=== PATIENT | male | born 1960 | race Caucasian/White ===

== ENCOUNTER 2019-11-08 14:19 | Inpatient (IN) | payer MEDICAID, OTHER ==
[~2019-11-08] VITALS: Ht 175.3 cm; Wt 132.8 kg
[2019-11-08] MEDS ORDERED: SODIUM CHLORIDE 0.9% 500 ML IV ONE (14:41)
[2019-11-08] MEDS ORDERED: MORPHINE SULFATE 4 MG/ML SYR/VIAL IV ONE (14:45)
[2019-11-08] MEDS ORDERED: ONDANSETRON HCL 4 MG/2 ML VIAL IV ONE (14:45)
[2019-11-08 15:10] LABS: Basophils # (auto) 0.1 10 ^3/uL (0-0.2); Eosinophils # (auto) 0.2 10 ^3/uL (0-0.8); Eosinophils % (auto) 3.3 % (0.0-7.0); Hematocrit 38.6 % (41.0-53.0); Hemoglobin 12.9 g/dL (13.5-17.5); Lymphocytes # (auto) 1.5 10 ^3/uL (0.4-5.4); Lymphocytes % (auto) 21.7 % (10.0-50.0); Mean Corpuscular Hemoglobin 29.9 pg (28.0-32.0); Mean Corpuscular Hgb Conc. 33.4 g/dL (32.0-36.0); Mean Corpuscular Volume 89.6 fL (80.0-100.0); Monocytes # (auto) 0.6 10 ^3/uL (0-1.3); Monocytes % (auto) 8.2 % (0.0-12.0); Neutrophils # (auto) 4.7 10 ^3/uL (1.6-8.6); Neutrophils % (auto) 65.8 % (37.0-80.0); Nucleated Red Blood Cells % 0.1 %; Platelet Count (auto) 173 10^3/uL (140-450); Red Cell Distribution Width 13.7 % (11.8-14.3); White Blood Cell 7.1 10^3/uL (4.4-10.8)
[2019-11-08 15:23] LABS: INR 1.15 (0.9-1.15); Partial Thromboplastin Time 26.7 sec (23.64-32.05)
[2019-11-08] MEDS ORDERED: MORPHINE SULF INJ 2 MG/ML SYRINGE 1ML IV PRN ×3 (15:30→16:00)
[2019-11-08] MEDS ORDERED: NITROGLYCERIN 0.4 MG SL TAB SL PRN ×2 (15:30→16:00)
[2019-11-08] MEDS ORDERED: DOCUSATE SOD 100 MG CAP PO PRN (16:00)
[2019-11-08] MEDS ORDERED: ALUM & MAG HYDROX-SIMETH LIQ(MAALOX) 30 ML PO PRN (16:00)
[2019-11-08] MEDS ORDERED: VANCOMYCIN PER PHARMACY 0 MG IV SCH (16:00)
[2019-11-08] MEDS ORDERED: LORazepam 0.5 MG TAB PO PRN (16:00)
[2019-11-08] MEDS ORDERED: ONDANSETRON HCL 4 MG/2 ML VIAL IV PRN (16:00)
[2019-11-08 16:30] LABS: Albumin 3.7 g/dL (3.4-5.0); Calcium 8.9 mg/dL (8.5-10.1)
[2019-11-08 16:34] LABS: BUN/Creatinine Ratio 16.8; Bilirubin, Total 0.4 mg/dL (0.2-1.0); Total Protein 7.8 g/dL (6.4-8.2)
[2019-11-08] MEDS ORDERED: PIPERACILLIN-TAZOB 3.375GM 100 ML IV SCH (18:00)
[2019-11-08] MEDS: VANCOMYCIN 1GM/250ML 250 ML IV SCH (18:45)
[2019-11-08] MEDS: SODIUM CHLORIDE 0.9% 1,000 ML IV SCH (18:45)
--- NOTE | 2019-11-08 19:00 | NUR ---
Telemetry admit from ER at 1730 Admitted to Telemetry unit after SBAR received. Patient oriented to primary RN, unit, room, bed, and unit policies regarding patient care and visiting hours (no visitors at this time). Patient now on continuous telemetry monitoring. Patient weighed by bedscale and encouraged to call if they need something. All questions and concerns addressed, patient verbalized understanding. Small dry scabbed area to right heel. Open to air, no drainaged. Pt is ambulatory, urinal provided. 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 PICC line to OFELIA present on arrival to hospital. Admission done. MRSA swab sent due to history of MRSA. Passed along to next shift to take picture of right heel, complete valuables form, and enter home medications into the computer (list provided by patient).
--- NOTE | 2019-11-08 19:30 | NUR ---
Opening Shift Note Assumed care of patient after receiving report from day RN. Patient awake and alert, resting in bed comfortably. No S/S of distress/SOB or pain. Call light within reach and bed in lowest position x2 side rails. Instructed on POC and to call for assist PRN, will continue to monitor for changes Q1hr and PRN.
[2019-11-08] MEDS: PIPERACILLIN-TAZOB 3.375GM 100 ML IV SCH (20:09)
[2019-11-08 22:00] VITALS: BP 108/54
--- NOTE | 2019-11-08 23:50 | NUR ---
Wound photo taken of right heel. Wound left open to air.
[2019-11-09] MEDS: SODIUM CHLORIDE 0.9% 1,000 ML IV SCH ×3 (00:17→18:58)
[2019-11-09] MEDS: PIPERACILLIN-TAZOB 3.375GM 100 ML IV SCH ×4 (01:37→21:37)
[2019-11-09 05:00] VITALS: BP 134/75
[2019-11-09] MEDS: VANCOMYCIN 1GM/250ML 250 ML IV SCH ×2 (05:21→20:08)
--- NOTE | 2019-11-09 07:00 | NUR ---
OPENING NOTE SHIFT REPORT RECEIVED FROM [facility] FERNANDO CASON, POC R/HEEL SURGERY, NO ORDERS IN PLACE AND NO CONSENTS COMPLETED. PATIENT NPO AFTER MIDNIGHT. SURGERY SCHEDULED FOR 1000. WILL CONTINUE TO MONITOR.
[2019-11-09] MEDS ORDERED: FLUO-125 PO (07:14)
[2019-11-09] MEDS ORDERED: ATO40T PO (07:14)
[2019-11-09] MEDS ORDERED: ATEN50TA PO (07:14)
[2019-11-09] MEDS ORDERED: HCTZ25T PO (07:14)
[2019-11-09] MEDS ORDERED: HYDR-531 PO (07:14)
[2019-11-09] MEDS ORDERED: TRAZ1TAB12 PO (07:14)
[2019-11-09 07:15] LABS: Basophils # (auto) 0 10 ^3/uL (0-0.2); Basophils % (auto) 0.6 % (0.0-2.0); Eosinophils # (auto) 0.3 10 ^3/uL (0-0.8); Eosinophils % (auto) 4.6 % (0.0-7.0); Hematocrit 37.5 % (41.0-53.0); Hemoglobin 12.4 g/dL (13.5-17.5); Lymphocytes # (auto) 1.2 10 ^3/uL (0.4-5.4); Lymphocytes % (auto) 19.5 % (10.0-50.0); Mean Corpuscular Hemoglobin 29.5 pg (28.0-32.0); Mean Corpuscular Hgb Conc. 33.2 g/dL (32.0-36.0); Mean Corpuscular Volume 88.8 fL (80.0-100.0); Monocytes # (auto) 0.5 10 ^3/uL (0-1.3); Monocytes % (auto) 7.9 % (0.0-12.0); Neutrophils % (auto) 67.4 % (37.0-80.0); Nucleated Red Blood Cells % 0.1 %; Platelet Count (auto) 159 10^3/uL (140-450); Red Blood Cells 4.22 10^6/uL (4.5-5.90); Red Cell Distribution Width 13.9 % (11.8-14.3)
[2019-11-09 07:26] LABS: Potassium 3.9 mmol/L (3.5-5.1)
[2019-11-09 07:33] LABS: Albumin 3.5 g/dL (3.4-5.0); BUN/Creatinine Ratio 18.8; Bilirubin, Total 0.5 mg/dL (0.2-1.0); CRP High Sensitivity 0.59 mg/dL (< 0.3); Calcium 9.1 mg/dL (8.5-10.1); Phosphorus 3.4 mg/dL (2.5-4.90); Total Protein 7.3 g/dL (6.4-8.2)
[2019-11-09 07:48] LABS: INR 1.13 (0.9-1.15); Partial Thromboplastin Time 27.4 sec (23.64-32.05)
[2019-11-09 08:00] VITALS: BP 116/68
[2019-11-09 09:00] VITALS: BP 116/68
[2019-11-09] MEDS: ATENOLOL 50 MG TAB PO SCH (10:00)
[2019-11-09] MEDS: HCTZ 25 MG TAB PO SCH (10:00)
[2019-11-09] MEDS: ENOXAPARIN SOD 40 MG/0.4 ML SYRINGE SC SCH (10:00)
--- NOTE | 2019-11-09 10:00 | NUR ---
HELD 1000 MEDICATIONS FOR SURGERY
--- NOTE | 2019-11-09 10:11 | NUR ---
TAKING PATIENT DOWN TO PREOP, NO CONSENTS OR ORDERS, PREOP NOTIFIED
[2019-11-09] MEDS ORDERED: fentaNYL CITRATE 100 MCG/2 ML VL ONE (10:19)
[2019-11-09] MEDS ORDERED: MIDAZOLAM HCL 1MG/1ML-2 ML VIAL ONE ×2 (10:19→10:53)
[2019-11-09] MEDS ORDERED: PROPOFOL 10 MG/ML 20 ML IV ONE (10:20)
[2019-11-09] MEDS ORDERED: SODIUM CHLORIDE LOCK 10 ML ONE (10:20)
[2019-11-09] MEDS ORDERED: ONDANSETRON HCL 4 MG/2 ML VIAL ONE (10:20)
[2019-11-09] MEDS ORDERED: LIDOCAINE 1% HCL (LOCAL ANESTH.) INJ 20ML MDV ONE ×3 (10:33→11:25)
[2019-11-09] MEDS ORDERED: BUPIVACAINE HCL 50 ML ONE (10:33)
[2019-11-09] MEDS ORDERED: HYDROmorphone HCL 2 MG/ML VL ONE (12:41)
[2019-11-09] MEDS: HYDROmorphone HCL 2 MG/ML VL IV PRN ×4 (12:43→13:17)
[2019-11-09] MEDS ORDERED: ePHEDrine SULFATE 50 MG/ML AMP IV PRN (12:45)
[2019-11-09] MEDS ORDERED: MORPHINE SULFATE 4 MG/ML SYR/VIAL IV PRN (12:45)
[2019-11-09] MEDS ORDERED: LABETALOL HCL 5 MG/ML 4ML SYRINGE IV PRN (12:45)
[2019-11-09] MEDS ORDERED: ONDANSETRON HCL 4 MG/2 ML VIAL IV PRN (12:45)
[2019-11-09] MEDS ORDERED: MIDAZOLAM HCL 1MG/1ML-2 ML VIAL IV PRN (12:45)
--- NOTE | 2019-11-09 13:50 | NUR ---
OR REPORT TAHIR KING GAVE REPORT ON PATIENT. VS WDNL. NEW ORDERS PLACED BY . DC IN 24HRS, DRESSING KERLIX/RADHA WRAP, ICE FOR PAIN/INFLAMMATION. HARDWARE REMOVED. DEBRIDEMENT OF RIGHT HEEL WOUND. PATIENT WAS RESTING WELL.
--- NOTE | 2019-11-09 14:00 | NUR ---
PATIENT ON UNIT PATIENT RESTING WELL, AWAKE, USING URINAL, NO S/S OF DISTRESS. WILL CONTINUE TO MONITOR.'
[2019-11-09] MEDS: HYDROcodone-ACET 5/325MG TAB PO PRN ×2 (15:55→21:36)
--- NOTE | 2019-11-09 16:00 | NUR ---
PATIENT RESTING WELL NO S/S OF BLEEDING, DRESSING C/D/I
[2019-11-09 17:00] VITALS: BP 127/58
--- NOTE | 2019-11-09 18:50 | NUR ---
PATIENT RESTING WELL NO S/S OF BLEEDING, DRESSING C/D/I. PATIENT C/O PAIN 02/19, WILL MEDICATE AND REPORT TO NOC RN
[2019-11-09] MEDS: MORPHINE SULF INJ 2 MG/ML SYRINGE 1ML IV PRN (18:58)
--- NOTE | 2019-11-09 19:05 | NUR ---
SHIFT REPORT ENDORSED PATIENT CARE TO NOC FERNANDO JAUREGUI, PATIENT RECENTLY MEDICATED WITH 2MG/1ML OF MORPHINE FOR PAIN OF 02/19
--- NOTE | 2019-11-09 19:35 | NUR ---
Opening Shift Note Assumed care of patient after receiving report from day shift RN. Patient awake and A&O x4, resting in bed comfortably. No S/S of distress/SOB noted. Patient denies pain at this time. Dressing to right foot C/D/I. Pulses to right foot palpable and warm to touch. Bed locked and left in the lowest position with the side rails up x2 and call light left within reach. Instructed on POC and to call for assist PRN, will continue to monitor for changes Q1hr and PRN.
--- NOTE | 2019-11-09 21:36 | NUR ---
PAIN PATIENT C/O PAIN TO RIGHT FOOT 6/10 ON A NUMERICAL SCALE. WILL MEDICATE PER MD ORDERS.
[2019-11-09 22:32] VITALS: BP 111/49
--- NOTE | 2019-11-09 22:36 | NUR ---
PAIN REASSESSMENT PATIENT RESTING IN BED COMFORTABLY, REPORTS TOLERABLE PAIN AT THIS TIME. NO FURTHER INTERVENTIONS NEEDED.
[2019-11-10] MEDS: PIPERACILLIN-TAZOB 3.375GM 100 ML IV SCH (02:13)
[2019-11-10] MEDS: MORPHINE SULF INJ 2 MG/ML SYRINGE 1ML IV PRN ×2 (02:14→08:37)
--- NOTE | 2019-11-10 02:14 | NUR ---
PAIN PATIENT C/O PAIN TO RIGHT FOOT 8/10 ON A NUMERICAL SCALE. WILL MEDICATE PER MD ORDERS.
--- NOTE | 2019-11-10 02:44 | NUR ---
PAIN REASSESSMENT PATIENT RESTING IN BED COMFORTABLY, REPORTS TOLERABLE PAIN AT THIS TIME. NO FURTHER INTERVENTIONS NEEDED
[2019-11-10 05:48] VITALS: BP 114/63
[2019-11-10] MEDS: SODIUM CHLORIDE 0.9% 1,000 ML IV SCH ×2 (06:33→08:36)
[2019-11-10 08:00] VITALS: BP 121/68
[2019-11-10] MEDS ORDERED: VANCOMYCIN 1GM/250ML 250 ML IV SCH ×2 (08:00→18:00)
[2019-11-10 08:03] LABS: Hematocrit 39.7 % (41.0-53.0); Hemoglobin 13.1 g/dL (13.5-17.5)
[2019-11-10 08:24] LABS: Calcium 9.5 mg/dL (8.5-10.1); Potassium 4.3 mmol/L (3.5-5.1)
[2019-11-10 08:26] LABS: BUN/Creatinine Ratio 21.2
[2019-11-10 08:55] VITALS: BP 121/63
[2019-11-10] MEDS ORDERED: PIPERACILLIN-TAZOB 3.375GM 100 ML IV SCH (10:00)
[2019-11-10] MEDS: ATENOLOL 50 MG TAB PO SCH (10:00)
--- NOTE | 2019-11-10 10:00 | NUR ---
PER DR ROCA'S REQUEST I CONTACTED DR BLACKWELL OFFICE TO GET CLARIFICATION ON WOUND CLEANING. PER DR ZELAYA OFFICE, DR ZELAYA WILL INSPECT AND CLEAN WOUND TOMORROW AT PATIENTS APPT.
[2019-11-10] MEDS: HCTZ 25 MG TAB PO SCH (10:27)
[2019-11-10] MEDS: ENOXAPARIN SOD 40 MG/0.4 ML SYRINGE SC SCH (10:27)
[2019-11-10] MEDS: HYDROcodone-ACET 5/325MG TAB PO PRN (10:56)
[2019-11-10 12:55] VITALS: BP 117/65
[2019-11-10 13:00] VITALS: BP 117/65
--- NOTE | 2019-11-10 14:21 | NUR ---
Ux Visual Designer Consult regarding resuming Home Health. Pt was previously on service with [facility] Addendum: 11/10/19 at 1538 by HARI ALVAREZ Amended: Links added.
--- NOTE | 2019-11-10 14:31 | NUR ---
Nut Sheller consult regarding resuming Home Health. Pt was previously on service with [facility] ([phone]) and will be resuming with this service upon discharge. [facility] contacted and information faxed to Alisha. Information received and services to resume upon discharge. Will notify covering nurse and FABRICIO II of the above.
--- NOTE | 2019-11-10 15:15 | NUR ---
CORRECTED SS REQUEST TO INCLUDE RESUMPTION OF THE IV ABX WELL PER [facility] REQUEST
--- NOTE | 2019-11-10 16:45 | NUR ---
Discharge instructions given as ordered. Encourage to follow up with PMD as instructed. Appt set with Dr Murphy tomorrow at 9:45 at the [place] office. All questions and concerns addressed. Patient verbalized understanding. Medication reconciliation form completed and copy given to patient. No home medications held in Pharmacy and no needed vaccines given, patient refused. Patient came to Hospital with central line, and D/C'd home with same line to have continued Home Health care for Abx treatment. Telemetry unit returned to ICU. Patient taken to vehicle via wheelchair with all personal belongings, accompanied by staff member. No photos taken at discharge, procedure was complete yesterday and was wrapped by MD. No distress noted at time of departure.
[2019-11-11] MEDS ORDERED: DAKINS QUARTER STR 0.125% (NaHypochlorite) 473 ML TOPICAL SOL TOP SCH (10:00)
== END 2019-11-10 16:45 | disposition home health service (06) | DRG 314 ==
LOC: ER 14:19 → TELE 14:20 → TELE-EAST 17:16
PROVIDERS: ADMIT Hospitalist; ATTEND Internal Medicine
PROC: 0Q9 Lower Bones, Drainage (ICD-10-PCS; 2019-11-09)
PROC: 0QR Lower Bones, Replacement (ICD-10-PCS; principal; 2019-11-09 10:44)
PROC: 0SP Lower Joints, Removal (ICD-10-PCS; 2019-11-09 10:44)
DX: T84.59XA Infection and inflammatory reaction due to other internal joint prosthesis, initial encounter (principal); N17.0 Acute kidney failure with tubular necrosis; M86.9 Osteomyelitis, unspecified; E11.621 Type 2 diabetes mellitus with foot ulcer; E66.01 Morbid (severe) obesity due to excess calories; L97.519 Non-pressure chronic ulcer of other part of right foot with unspecified severity; E11.69 Type 2 diabetes mellitus with other specified complication; G56.03 Carpal tunnel syndrome, bilateral upper limbs; I10 Essential (primary) hypertension; D63.8 Anemia in other chronic diseases classified elsewhere; E78.5 Hyperlipidemia, unspecified; Z83.3 Family history of diabetes mellitus; Z80.1 Family history of malignant neoplasm of trachea, bronchus and lung; Z79.899 Other long term (current) drug therapy; Z91.19 Patient's noncompliance with other medical treatment and regimen; Z68.41 Body mass index [BMI] 40.0-44.9, adult; Y92.89 Other specified places as the place of occurrence of the external cause
CPT/HCPCS: 36415; 71045; 73620; 73700; 76000; 80048; 80053; 80061; 80202; 83036; 83735; 84100; 85014; 85018; 85025; 85610; 85652; 85730; 86141; 87040; 87070; 87075; 87081; 87205; 96361; 96374; 96375; G0378; J2001; J2250; J2405; J2543; J2704; J3490; V2790